=== PATIENT | female | born 1975 | race African-American/Black ===

== ENCOUNTER 2020-03-27 13:17 | Emergency (ER) | payer OTHER ==
[~2020-03-27] VITALS: Ht 154.9 cm; Wt 62.1 kg
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
--- NOTE | 2020-03-27 14:06 | NUR ---
SW ANABELLA AT BEDSIDE
--- NOTE | 2020-03-27 15:38 | NUR ---
PER JYOTI KYLE, CALL [facility] TO SEE IF PATIENT CAN BE TRANSFERRED
--- NOTE | 2020-03-27 16:25 | NUR ---
CALLED KIMI BOLDEN MD WILL CALL DR. TRUONG
--- NOTE | 2020-03-27 16:48 | NUR ---
provided w/ meal tray. pt is medically and psych cleared. provided w/ tap card. discharge in stable condition.
[2020-03-27 16:50] VITALS: BP 111/62
== END 2020-03-27 16:51 | disposition home or self-care (01) ==
LOC: ER 13:24
DX: F41.9 Anxiety disorder, unspecified (principal); F32.9 Major depressive disorder, single episode, unspecified; I10 Essential (primary) hypertension; J45.909 Unspecified asthma, uncomplicated